=== PATIENT | female | born 1995 | race Caucasian/White ===

== ENCOUNTER 2024-02-01 01:19 | Emergency (ER) | payer OTHER, SELFPAY ==
--- NOTE | ~2024-02-01 | XR_ITS ---
EXAMINATION: XR CHEST CLINICAL INFORMATION: Cough. COMPARISON: 01/14/2017. TECHNIQUE: Frontal view of the chest was obtained. FINDINGS: No significant abnormality is noted involving the heart, lungs, mediastinum, bony thorax or soft tissues. XR/XR chest 1V IMPRESSION: Unremarkable examination.
[2024-02-01 01:30] VITALS: BP 126/80; BP 126/85; PULSE 110; PULSE 91; RESP 16; TEMP 36.9; O2SAT 99; BMI 25.3
--- NOTE | 2024-02-01 01:43 | ED_ITS ---
HPI - Syncope General Chief Complaint: Syncope Stated Complaint: CONFUSED Time Seen by Provider: 02/01/24 01:43 Source: patient Mode of arrival: EMS Limitations: no limitations History of Present Illness ED Provider: yandel CA narrative: Patient came here for syncope episode after having few drinks and smoke nicotine bus coughing which is going on for last few days and passed out no significant injuries Related Data Allergies Allergy/AdvReac Type Severity Reaction Status Date / Time No Known Allergies Allergy Unverified 02/01/24 01:34 Review of Systems 2 Review of Systems: Yes all other systems are reviewed and are negative [facility] Social History Social History Smoked in Last 30 Days: No Use of substances other than those prescribed or required for medical reasons: No Advance Directives: No Advance Directives Information Provided: Yes Patient : No Physical Exam 2 Vital Signs: Vital Signs: Last Vital Signs Temp 97.9 F 02/01/24 04:09 Pulse 96 02/01/24 04:09 Resp 16 02/01/24 04:09 BP 116/74 02/01/24 04:09 Pulse Ox 97 02/01/24 04:09 O2 Del Method Room Air 02/01/24 04:09 BMI result Body Mass Index 25.3 Appearance: Alert. Oriented X3. No acute distress. Eyes: PERRLA, No Nystagmus ENT: Pharynx normal. Oral Mucosa moist Neck: Normal inspection. Neck supple. CVS: Normal heart rate and rhythm. Pulses normal. Respiratory: No respiratory distress. Equal air entry bilateral, no wheezing/rales/rhonchi Abdomen: Soft and nontender. Bowel sounds are present, no mass palpable, no CVA tenderness Skin: Skin warm and dry. Normal skin color. Normal skin turgor. Extremities: No lower extremity edema. No calf tenderness Neuro: Oriented X 3. No motor deficit. No sensory deficit.No cerebellar signs , cranial nerves II-XII intact Medications Administered Discontinued Medications Generic Name Dose Route Start Last Admin Trade Name Freq PRN Reason Stop Dose Admin Acetaminophen 650 mg 02/01/24 04:15 02/01/24 04:40 Acetaminophen 325 Mg Tablet PO 02/01/24 04:16 650 mg ONCE ONE Administration Sodium Chloride 1,000 mls @ 999 mls/hr 02/01/24 02:04 02/01/24 03:30 Ns IV 02/01/24 03:04 Infused .Q1H1M ONE Infusion Medical Decision Making Medical Decision Making [facility] Narrative: Patient with acute alcohol intoxication feeling much better now after resting and IV fluid discharge patient home orthostatics normal Differential Diagnosis Differential Diagnoses: The differential diagnosis associated with the presentation includes Lab Data [facility] Lab Attestation statement: I reviewed the patient's lab results. 02/01/24 02:25 02/01/24 02:30 Labs: Lab Results 02/01/24 02/01/24 02/01/24 Range/Units 02:25 02:29 02:30 WBC 9.6 (4.8-10.8) X10*3/uL RBC 4.33 (4.20-5.50) X10*6/uL Hgb 13.4 (12.0-16.0) g/dl Hct 38.1 (37.0-47.0) % MCV 88.0 (80.0-98.0) fL MCH 30.9 (27.0-33.0) pg MCHC 35.2 H (31.0-35.0) g/dl RDW 12.7 (11.0-16.0) % Plt Count 202 (160-400) X10*3/uL MPV 12.2 (9.4-12.3) fL Immature Gran % (Auto) 0.3 (0.0-0.4) % Neut % (Auto) 72.2 (45-73) % Lymph % (Auto) 18.0 L (20-40) % [place] % (Auto) 7.8 (2-11) % Eos % (Auto) 1.0 (0-4) % Baso % (Auto) 0.7 (0-2) % Lymph # (Auto) 1.7 (1.2-4.9) X10*3/uL [place] # (Auto) 0.8 (0.1-1.2) X10*3/uL Eos # (Auto) 0.1 (0.0-0.4) X10*3/uL Baso # (Auto) 0.1 (0.0-0.2) X10*3/uL Abs Immat Gran (auto) 0.03 (0.00-0.03) X10*3/uL Absolute Neuts (auto) 7.0 (2.0-8.3) x10*3/uL Absolute Nucleated RBC 0.000 (0.0-0.012) X10*3/uL Nucleated RBC % (auto) 0.0 (0.0-0.2) /100WBC Sodium 144 (135-145) mmol/L Potassium 3.9 (3.3-5.1) mmol/L Chloride 111 H (96-108) mmol/L Carbon Dioxide 24 (22-29) mmol/L Anion Gap 13 (12-20) BUN 9 (9-16) mg/dL Creatinine 0.70 (0.5-1.4) mg/dL Estim Creat Clear Calc 106.0 Estimated GFR > 60 Random Glucose 91 (60-115) mg/dL Calcium 9.1 (8.4-10.2) mg/dL Magnesium 2.0 (1.6-2.6) mg/dL Total Bilirubin 0.2 (0.0-1.0) mg/dL AST 18 (5-31) U/L ALT 13 (0-31) U/L Alkaline Phosphatase 84 (39-117) U/L Total Protein 7.3 (6.5-8.0) g/dL Albumin 4.3 (3.5-5.0) g/dL Ethyl Alcohol 147 mg/dL Discharge Plan Discharge Clinical Impression: Alcohol intoxication Patient Disposition: Home, Self-Care Instructions: Alcohol Intoxication (ED) Additional Instructions: Drink plenty of fluids Stop drinking alcohol Print Language: Bolivian
[2024-02-01 01:48] VITALS: PULSE 91; O2SAT 99
[2024-02-01 02:03] VITALS: BP 115/72; PULSE 92
[2024-02-01 02:04] VITALS: BP 109/78; BP 111/74; PULSE 103; PULSE 98
--- NOTE | 2024-02-01 02:05 | PC.NURSE ---
pt initially refusing lab work, md aware and orthos requested. While completing ortho's pt noted to be unable to independently international coordinator place as she was observed to sway, and was not reaching for items to stabilize her. RN provided hands on assistance to the patient while standing. MD made aware of pt's refusal and request to go home, she denies having a sober/safe ride this date adding that she will just uber home. RN discussed concerns with MD as patient unable to independently stand without assistance
[2024-02-01] MEDS: 0.9 % Sodium Chloride 1,000 ML 999 ML IV (02:26)
[2024-02-01 02:29] LABS: MANUAL DIFF FLAG NO
[2024-02-01 02:37] LABS: Basophils Absolute Auto 0.1 X10*3/uL (0.0-0.2); Basophils Percent Auto 0.7 % (0-2); Eosinophils Absolute Auto 0.1 X10*3/uL (0.0-0.4); Hematocrit 38.1 % (37.0-47.0); Hemoglobin 13.4 g/dl (12.0-16.0); Imm Gran Abs Auto 0.03 X10*3/uL (0.00-0.03); Imm Gran Pct Auto 0.3 % (0.0-0.4); Lymphocytes Absolute Auto 1.7 X10*3/uL (1.2-4.9); Mean Corpuscular HGB Conc 35.2 g/dl (31.0-35.0); Mean Corpuscular Hemoglobin 30.9 pg (27.0-33.0); Mean Platelet Volume 12.2 fL (9.4-12.3); Monocytes Absolute Auto 0.8 X10*3/uL (0.1-1.2); Monocytes Percent Auto 7.8 % (2-11); Neutrophils Percent Auto 72.2 % (45-73); Platelet Count 202 X10*3/uL (160-400); Red Blood Count 4.33 X10*6/uL (4.20-5.50); Red Cell Distribution Width 12.7 % (11.0-16.0); White Blood Count 9.6 X10*3/uL (4.8-10.8)
[2024-02-01 02:51] LABS: Ethanol 147 mg/dL
[2024-02-01 02:52] LABS: Alanine Aminotransferase 13 U/L (0-31); Albumin Level 4.3 g/dL (3.5-5.0); Alkaline Phosphatase 84 U/L (39-117); Anion Gap 13 (12-20); Aspartate Amino Transferase 18 U/L (5-31); Bilirubin Total 0.2 mg/dL (0.0-1.0); Blood Urea Nitrogen 9 mg/dL (9-16); Calcium 9.1 mg/dL (8.4-10.2); Carbon Dioxide 24 mmol/L (22-29); Chloride 111 mmol/L (96-108); Estimated Glomerular Filt Rate > 60; Glucose Random 91 mg/dL (60-115); Potassium 3.9 mmol/L (3.3-5.1); Sodium 144 mmol/L (135-145); Total Protein 7.3 g/dL (6.5-8.0)
[2024-02-01 04:09] VITALS: BP 116/74; PULSE 96; RESP 16; TEMP 36.6; O2SAT 97
--- NOTE | 2024-02-01 04:12 | MHC.EDTECH ---
Patient ambulated to the bathroom with 1 assist,patient had a steady gait,vitals taken
[2024-02-01] MEDS: Acetaminophen 325 MG TABLET 650 MG PO (04:40)
[2024-02-01 06:12] VITALS: BP 118/76; PULSE 88; RESP 16; TEMP 36.8; O2SAT 99
== END 2024-02-01 06:13 | disposition home or self-care (01) ==
PROVIDERS: Emergency Provider Internal Medicine
DX: F10.129 Alcohol abuse with intoxication, unspecified (principal); Y90.6 Blood alcohol level of 120-199 mg/100 ml; R05.9 Cough, unspecified
CPT/HCPCS: 36415; 71045; 80053; 80307; 83735; 85025; 96360; 99284; 99285

== ENCOUNTER 2024-02-22 12:51 | Emergency (ER) | payer OTHER, SELFPAY ==
--- NOTE | ~2024-02-22 | XR_ITS ---
EXAMINATION: XR HAND, LEFT CLINICAL INFORMATION: Pain, trauma COMPARISON: Finger radiographs 08/15/2008 TECHNIQUE: 3 views of the hand FINDINGS: No fracture or dislocation. Joint spaces are maintained. No cortical erosion. Soft tissues are unremarkable. XR/XR hand LT min 3V IMPRESSION: No acute osseous abnormality.
[2024-02-22 13:07] VITALS: BP 115/57; PULSE 79; RESP 18; TEMP 36.9; O2SAT 100; BMI 22.5
--- NOTE | 2024-02-22 14:22 | ED_ITS ---
HPI - Extremity Problem General Chief complaint: Extremity Injury, Upper Stated complaint: hand inj Time Seen by Provider: 02/22/24 14:22 Source: patient Mode of arrival: ambulatory Limitations: no limitations History of Present Illness ED Provider: Jess Harris PA-C HPI Narrative: Patient is a 28 year old assigned female at with no reported medical history presenting to the emergency department today with left thumb pain. Patient states that yesterday while paddle boarding, she reached back and pushed off her palms when she felt a pop in her left thumb and ever since has had pain with left thumb movement - specifically when attempting to skating rink ice maker things. Patient denies any head strike, loss of consciousness, dizziness, lightheadedness, abdominal pain, nausea, vomiting, fever, chills, blurry vision, double vision, loss of vision, chest pain, difficulty breathing, shortness of breath, back pain, night sweats, pain with urination, increased urinary frequency, increased urinary urgency, blood in her urine or stool, syncope or a near syncopal episode, bowel incontinence, bladder incontinence, or any other complaints at this time. MD Complaint: extremity pain Onset (ago): day(s) (1) Pain Consistency: constant Location: left and upper extremity Severity scale (1-10): 4 Quality: aching and dull Radiation: none Relieving factors: immobilization Exacerbating factors: other (ROM) Associated symptoms: denies other symptoms Related Data Allergies Allergy/AdvReac Type Severity Reaction Status Date / Time No Known Allergies Allergy Verified 02/22/24 13:10 Review of Systems Constitutional: Constitutional: Reports no additional constitutional complaints, Denies chills, Denies fever(s) and Denies night sweats Eyes: Eyes: Reports no additional eye complaints, Denies blurry vision, Denies change in vision, Denies diplopia, Denies eye discharge, Denies loss of vision and Denies eye pain ENT: Denies dizziness Cardiovascular: Cardiovascular: Reports no additional cardiovascular complaints, Denies chest pain, Denies lightheadedness, Denies Loss of Consciousness and Denies dyspnea Respiratory: Respiratory: Reports no additional respiratory complaints and Denies dyspnea Gastrointestinal: Gastrointestinal: Reports no additional gastrointestinal complaints, Denies abdominal pain, Denies melena, Denies hematochezia, Denies change in bowel habits and Denies change in stool character Genitourinary: Genitourinary: Denies hematuria, Denies urinary frequency, Denies dysuria, Denies urinary incontinence, Denies urinary hesitancy and Denies urinary urgency Musculoskeletal: Musculoskeletal: Reports no additional musculoskeletal complaints, Denies numbness and Denies tingling Comments: left thumb pain Neurologic: Denies dizziness, Denies loss of vision, Denies numbness and Denies tingling Psychiatric: Psychiatric: Reports no additional psychiatric complaints Endocrine: Endocrine: Reports no additional endocrine complaints Hematologic/Lymphatic: Hematologic/Lymphatic: Reports no additional hematologic/lymphatic complaints Allergic/Immunologic: Allergic/Immunologic: Reports no additional allergic/immunologic complaints [facility] Past Medical History Attestation statement: The following information was validated with the patient. Source: old records reviewed and nursing notes reviewed Social History Social History Advance Directives: Yes Advance Directives Information Provided: Yes Advance Directives on File: No (b) Do you have a plan to hurt others: No Plan Physical Exam Vital Signs: Vital Signs: Last Vital Signs Temp 97.8 F 02/22/24 14:44 Pulse 73 02/22/24 14:44 Resp 16 02/22/24 14:44 BP 126/88 02/22/24 14:44 Pulse Ox 98 02/22/24 14:44 O2 Del Method Room Air 02/22/24 14:44 BMI result Body Mass Index 22.5 Const: General: cooperative, no acute distress, alert and awake Nutritional Appearance: well nourished Orientation/consciousness: patient oriented x3 Limitations: no limitations HEENT: Head: Yes normal to inspection and Yes atraumatic Ears: hearing grossly normal bilaterally and external ears normal General nose exam: Normal external nose present, no nasal discharge noted and no epistaxis Face and sinus: Yes normal facial exam, No abrasion and No laceration Mouth: Normal oral and palatal mucosa present, no drooling and no muffled voice Eyes: General: appearance normal, both eyes and all related structures Periorbital: periorbital findings normal Eyelids: Yes eyelids normal Conjunctivae: conjunctivae normal Pupils: Equal, round and reactive pupils present EOM: EOMs intact bilaterally Neck: Neck: Yes normal visual inspection, Yes full ROM and Yes no lymphadenopathy Chest: Chest palpation & inspection: normal inspection of the chest Resp: Effort & Inspection: normal respiratory effort and able to speak in complete sentences GI: Inspection: Yes normal to inspection Neuro: General: patient oriented x3 and moves all extremities Cranial nerves: Yes Equal, round and reactive pupils present Cognition (Neuro): normal cognition Extrem: Other: patient's left thumb has decreased ROM secondary to pain. Patient unable to fully extend left thumb over her left palm. General: Yes normal to inspection and Yes capillary refill normal Psych: Appearance: grossly normal Mental Status: mental status grossly normal Affect: normal affect Attitude: cooperative Thought process: Normal thought process present Thought content: Normal thought content present Insight: Good insight present (Psych) Medical Decision Making Medical Decision Making MDM Narrative: Patient is a 28 year old assigned female at with no reported medical history presenting to the emergency department today with a left thumb injury. Patient's physical exam was as noted in the physical exam portion of this note and concerning for a left thumb injury. Patient's left hand x-ray showed no acute process. I explained my physical exam findings as well as all test results to the patient. I answered all questions asked by the patient. Patient's left hand was placed in a thumb spica splint, without incident. Patient's PMS was intact prior to and after splint placement. I stressed the importance of the patient taking her medication as directed (either prescribed or as the over the counter packaging recommends). I stressed the importance of the patient following up with her primary care provider and an orthopedic provider. I stressed the importance of the patient returning to the emergency department immediately if her symptoms were to worsen or if she were to develop any dizziness, shortness of breath, difficulty breathing, chest pain, blurry vision, loss of vision, nausea, vomiting, abdominal pain, fever, chills, back pain, or any other complaints. Patient verbalized agreement and understanding with this treatment plan and discharge. Differential Diagnosis Differential Diagnoses: The differential diagnosis associated with the presentation includes UCL sprain UCL injury RCL injury RCL sprain Thumb sprain Admission/Observation Consideration of admission/observation: Escalation of care including admission/observation considered Patient would have been admitted to the hospital had her work up had any findings where hospital admission was appropriate and her clinical presentation warranted hospital admission. Independent Interpretation I performed an independent interpretation of an: Plain X-Ray Interpretation: My interpretation is in agreement with the radiologist's impression of this imaging study. EXAMINATION: XR HAND, LEFT CLINICAL INFORMATION: Pain, trauma COMPARISON: Finger radiographs 08/15/2008 TECHNIQUE: 3 views of the hand FINDINGS: No fracture or dislocation. Joint spaces are maintained. No cortical erosion. Soft tissues are unremarkable. XR/XR hand LT min 3V IMPRESSION: No acute osseous abnormality. Dictated By: Irina Craven MD Signed By: Electronically signed by Irina Craven MD 02/22/24 1120 Radiology Impression Discussion of test interpretation with radiology: I have reviewed the radiologist's reading. Procedures Orthopedic Splinting/Casting left thumb: Side: left Upper Extremity Injury Location: hand Upper Extremity Immobilizer: thumb spica Discharge Plan Discharge Clinical Impression: Left thumb sprain Patient Disposition: Home, Self-Care Instructions: Sprain (ED), Skier's Thumb (ED) Additional Instructions: Based on your physical exam and mechanism of injury - I'm concerned you injured your left ulnar collateral or radial collateral ligaments. Follow up with your primary care provider and the orthopedic provider. You may remove the splint to shower but it should otherwise remain on. Return to the emergency department immediately if your symptoms worsen or if you develop any dizziness, shortness of breath, difficulty breathing, chest pain, blurry vision, loss of vision, nausea, vomiting, abdominal pain, fever, chills, back pain, or any other complaints. Referrals: [facility] [place] Family Medicine [Provider Group] (Call to establish and follow up with a primary care provider. If you already have a primary care provider, please follow up with them.) [facility] Magalie Farr [Provider Group] [facility] [Provider Group] [facility] [place] [facility] [Provider Group] (Call to establish and follow up with an orthopedic provider. ) Stand Alone Forms: Work/School Release Interventions: ED Discharge Assessment Last Done: 02/22/24 14:44 Discharge Date/Time: 02/22/24 14:45 Print Language: Jordanian
[2024-02-22 14:44] VITALS: BP 126/88; PULSE 73; RESP 16; TEMP 36.6; O2SAT 98
== END 2024-02-22 14:45 | disposition home or self-care (01) ==
PROVIDERS: Emergency Provider Emergency Medicine
DX: S63.602A Unspecified sprain of left thumb, initial encounter (principal); X58.XXXA Exposure to other specified factors, initial encounter; Y93.19 Activity, other involving water and watercraft; Y92.89 Other specified places as the place of occurrence of the external cause; Y99.9 Unspecified external cause status; M79.642 Pain in left hand
CPT/HCPCS: 29130; 73130; 99283; 99284

== ENCOUNTER 2024-03-01 10:26 | Outpatient (AMB) | payer OTHER, SELFPAY ==
--- NOTE | 2024-03-01 10:31 | A.OFFVIS_ITS ---
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 Patient reports while padding boarding on 02/21/24 she reached back and pushed off the palms of her hands when she felt and heard a loud pop in her left thumb. She has been having pain since this injury specifically with gripping objects, states even grabbing her phone is painful. Her pain is starting to radiate up her arm and stops just before her elbow. She tried Advil but found no relief so she discontinued. She was seen in [facility] on 02/22/24 for this where she was placed in a splint, X-Rays were done and she was placed into a splint until her follow up with orthopedics. Complaints of the brace making her thumb feel worse. hx of left hand surgery roughly 5 years ago in [facility]. 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 Patient reports that she was on a paddle board when she reached behind her, and upon placing weight upon her left thumb she heard a loud pop and began to experience pain. Patient was previously evaluated in the emergency department, where she was placed in a thumb spica splint. Today, the patient reports that she feels her brace is causing the pain in her thumb to worsen. She reports no pain at total rest, but it is painful when she attempts to use the thumb, particularly with abduction. She denies any swelling, erythema, ecchymosis. 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 Neuro: Median, ulnar, radial nerves motor and sensory intact and sensation is normal to the tips of all digits. Vascular: Cap refill brisk Pain: Patient reports pain at the level of the MCP joint in the left thumb when she attempts to move the hand ROM: Full active range of motion of the thumb and other digits of the left hand Significant ligamentous laxity of the ulnar collateral ligament of the left thumb No Stener lesion observed Skin: No lacerations or abrasions. General: No ecchymosis, erythema, or evidence of infection. Psych: Appears grossly normal Affect normal Attitude cooperative Psych Appearance: grossly normal Mental Status: mental status grossly normal Assessment & Plan Assessment & Plan (1) Rupture of UCL of left thumb: Code(s): S63.642A - Sprain of metacarpophalangeal joint of left thumb, initial encounter Category: Medical Qualifiers: Encounter type: initial encounter Qualified Code(s): S63.642A - Sprain of metacarpophalangeal joint of left thumb, initial encounter Plan 1. UCL sprain of the left thumb MCP joint Date of injury 02/21/2024 After consultation and discussion with Dr. Ibarra, a joint treatment plan was formed x-rays obtained in the emergency department showed no acute fracture or bony abnormalities exam consistent withUCL injury of the left thumb Patient will remain in a thumb spica splint at this time patient will be evaluated by Dr. Ibarra at some point this week for discussion of further treatment options Coding Level of Care Code New Pt Level 3 (69010) Diagnoses Rupture of ulnar collateral ligament of left thumb, initial encounter S63.642A Encounter type: initial encounter
[2024-03-01 10:33] VITALS: BMI 21.3
== END 2024-03-01 11:07 | disposition home or self-care (01) ==
DX: S63.642A Sprain of metacarpophalangeal joint of left thumb, initial encounter (principal)
CPT/HCPCS: 99203

== ENCOUNTER → 2024-03-01 10:26 | Outpatient (BNVA) | payer OTHER, SELFPAY | DX: S63.642A Sprain of metacarpophalangeal joint of left thumb, initial encounter (principal) | CPT/HCPCS: 99202 ==

== ENCOUNTER → 2024-03-02 10:21 | Outpatient (BNVA) | payer OTHER, SELFPAY | PROVIDERS: Visit Provider Orthopaedic Surgery ==

== ENCOUNTER → 2024-03-18 15:03 | Outpatient (BNVA) | payer OTHER, SELFPAY | PROVIDERS: Visit Provider Physician Assistant ==

== ENCOUNTER 2024-04-06 12:52 | Outpatient (AMB) | payer OTHER, SELFPAY ==
--- NOTE | 2024-04-06 13:16 | MHC.OFFVIS ---
Vital Signs 04/06/24 13:49 Height 5 ft 6 in Weight 132 lb BMI 21.3 Intake Visit Reasons: OV-Left thumb sprain-follow up Intake Note: Madiha is a 28 year old right hand dominant female who presents today for a follow up evaluation of left thumb sprain. Patient reports pain level of 7 on the 0-10 pain scale. She states pain is on and off. She is taking Ibuprofen every 6 hours for pain with minimal relief. Denies numbness or tingling. Denies locking on fingers. Allergies No Known Allergies Allergy (Verified 04/06/24 13:49) HPI HPI OV-Left thumb sprain-follow up: Details: Madiha is a 28 year old right hand dominant woman who returns for a left thumb UCL sprain, DOI: 02/21/24 while paddle boarding. She was seen in the ED and placed in a thumb spica cast She says she is doing well. She has been wearing her cast since her DOI, and says she feels very stiff. She denies any numbness, tingling, or locking. She reports taking Ibuprofen for pain relief, which is somewhat helpful. 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 She says she has been working light duty, and has a co-worker on the floor who can perform restraints if needed. 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 [employer] Review of Systems Const All systems reviewed & are unremarkable except as noted in HPI and below Physical Exam Vital Signs: BMI result Body Mass Index 21.3 Const General: no acute distress and alert Orientation/consciousness: patient oriented x3 Neuro General: patient oriented x3 Extrem Other: Evaluation of Left Upper Extremity: The patient is alert, oriented, and in no acute distress Neuro: Median, Ulnar, Radial nerves motor and sensory intact and sensation is normal to the tips of all digits Vascular: Cap refill brisk ROM: She can make a fist and extend all her digits With encouragement she was able to oppose her thumb to the index middle and ring fingers. No laxity of the UCL at the thumb MCP joint when test in both extension and 45 degrees of flexion. Firm end-points Radiographs: 3 views of the left hand form 02/22/24 were reviewed by me today in clinic. They show no fractures or dislocations. Psych Appearance: grossly normal Affect: normal affect Attitude: cooperative Assessment & Plan Assessment & Plan (1) Sprain of ulnar collateral ligament of metacarpophalangeal (MCP) joint of left thumb: Code(s): S63.642A - Sprain of metacarpophalangeal joint of left thumb, initial encounter Category: Medical Plan Assessment & Plan: 1. Left thumb UCL sprain, DOI: 02/21/24 Treated with short-arm thumb spica cast I educated her about this condition I ordered OT hand therapy to have them make a custom thermoplastic hand based thumb spica splint, to be worn when out of the house with daily activities for the next 3 weeks. This splint is mostly for her work-related activities. She will remove her splint when at home, where she does not have to wear it. She will work on ROM exercises I discussed activity modification, she is able to use her hand for lightweight activities, and slowly increase her weight limit as tolerated over the next month She was given a note for work to return on light duty, with a 2 lb weight limit and no restraining patients for the next 4 weeks She can follow up prn. Scribed for Yasmin Ibarra MD by Jaylon Cain, medical insurance coding specialist, on 04/06/24 at 1:55 PM, EST. Orders: Orders OT Evaluation and Treatment Today S63.642A - Sprain of metacarpophalangeal joint of left thumb, initial encounter Coding Level of Care Code Est Pt Level 3 (48404) Diagnoses Sprain of ulnar collateral ligament of metacarpophalangeal (MCP) joint of left thumb S63.642A
[2024-04-06 13:49] VITALS: BMI 21.3
== END 2024-04-06 14:39 | disposition home or self-care (01) ==
PROVIDERS: Visit Provider Orthopaedic Surgery
DX: S63.642A Sprain of metacarpophalangeal joint of left thumb, initial encounter (principal)
CPT/HCPCS: 99213

== ENCOUNTER → 2024-04-06 12:52 | Outpatient (BNVA) | payer OTHER, SELFPAY | PROVIDERS: Visit Provider Orthopaedic Surgery | DX: S63.642D Sprain of metacarpophalangeal joint of left thumb, subsequent encounter (principal) | CPT/HCPCS: 99212 ==

== ENCOUNTER 2024-04-09 08:26 | Outpatient (RCR) | payer OTHER, SELFPAY ==
--- NOTE | 2024-04-09 12:59 | MHC.OT.OEV ---
[address] [phone] F: [phone] Occupational Therapy Evaluation Patient Name: Madiha Baca Diagnosis: (L)UCL sprain Date of Onset: 02/21/24 Date of Surgery: Attending Provider: Yasmin Ibarra Prescribed Treatment: MD Follow Up Appointment: History of Current Condition: Patient is a 28 y/o right hand dominate female with no significant medical history who was referred to skilled OT with a diagnosis of a (L)UCL sprain. Patient reports she was at a [employer] of [employer] libertarian where she paddle boarding. She was sitting on her board when she went to push herself up and over to allow someone on when she felt her pop. She immediately felt a ton of pain and the next day she felt warm and tingling and went to [facility]. A thumb spica splint was placed and she was in that for a week. She then went to [facility] and a thumb spica cast was placed on her and she wore it for 4 1/2 weeks. 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 she lives with brother in a 1 level home. She stated she has difficulty with gipping and pulling motions. 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 [employer] for Residential program for Childrens with mental disabilities Plays pool Living Situation, Family and/or Social Support: Lives with brother Current Level of Function and Occupation Self Care, Employment, Leisure: min (A) ADLs/ IADLs On light duty Sleep: Driving: Vision: Balance: Pain Assessment Pain Score: 8 Pain Scale Used: Pain Location and Description: (L)thumb 3/10 at rest 8/10 pain during activity Aggravating Factors: Alleviating Factors: ibuprofen, was using ice Skin and Soft Tissue Assessment Skin and Soft Tissue: Comments: Nerve assessment Ulnar Nerve: Median Nerve: Radial Nerve: Comments: Sensory Assessment Temperature: Light Touch: Proprioception: Vibration: Comments: Edema Assessment Upper Extremity: Lower Extremity: Comments: None present Dexterity Assessment Dexterity: Comments: Impaired Special Tests Comments: AROM(PROM) Strength Cervical Cervical Flexion: Cervical Extension: Cervical Lateral Flexion: Cervical Rotation: Comments: WFL Shoulder Flexion: Extension: Abduction: Internal Rotation: External Rotation: Comments: WFL Flexion: Extension: Abduction: Internal Rotation: External Rotation: Comments: WFL Elbow Flexion: Extension: Pronation: Supination: Comments: WFL Flexion: Extension: Pronation: Supination: Comments: WFL Wrist Flexion: 65 Extension: 65 Ulnar Deviation: 25 Radial Deviation: 20 Comments: Flexion: Extension: Ulnar Deviation: Radial Deviation: Comments: Thumb Thumb CMC Flexion: Thumb MCP Flexion: 50 Thumb IP Flexion: 60 Radial Abduction: 55 [place] Abduction: 40 [place] ([place] 0-10): WFL Comments: Digits Index MCP: PIP: DIP: Long MCP: PIP: DIP: Ring MCP: PIP: DIP: Small MCP: PIP: DIP: Comments: WFL Gross Grasp: (R)63lbs. Lateral Pinch: Two-Point Pinch: Three-Jaw Evens: Comments: WFL Patient Education Primary Language: Environmental Advisor Required: Current Knowledge: Teaching Method: Education Needs Identified on Evaluation: How did patient/family demonstrate learning? Barriers to Learning: Readiness for Learning: Who was educated? Comments: Plan of Care Assessment: Patient is a 28 y/o female with (L)UCL sprain (02/21/2024) who presents with pain and decreased ROM. Based on initial evaluation patients current thumb AROM measurements are as follows: 60* IP flexion, 50* MCP flexion, 55* Radial abduction, 40* sánchez abduction. Patient reports 3/10 pain at rest and 8/10 pain during movement. Patient will benefit from skilled OT intervention in order to increase ROM, decrease pain and to achieve her PLOF of (I). Thank you for your referral. STG Duration: 2 weeks Short Term Goals: Patient will report decreased pain from to 6/10 pain in (L)thumb Patient will increase radial abduction to 60* LTG Duration: 4 weeks Cargo Inspector Goals: Patient will report 0/10 pain in (L)thumb Patient will thumb AORM WFLs for improved performance during self care tasks Frequency and Duration: The patient will be seen 2x a week for 4 weeks Treatment Plan: Therapeutic Exercise Therapeutic Activity Home Exercise Program Splinting Patient Education ADL Training Paraffin Fluidotherapy MHP Cold Packs Joint Mobilization Soft Tissue Mobilization Kinesiotaping Skilled OT eval and treat Electronically Signed By: JIE Gutiérrez/NIMCO Anaya Reviewed/agree with student documentation: Therapist: Please sign and return to therapist, Thank you for your referral.
--- NOTE | 2024-04-26 08:22 | MHC.OT.DC ---
[address] [phone] F: [phone] Occupational Therapy Discharge Note Patient Name: Madiha Baca Provider: Yasmin Ibarra Diagnosis: (L)UCL sprain Date of Surgery: Date of Evaluation: 04/09/24 Date of Discharge: Treatments to Date: 1 Cancellations to Date: No Shows to Date: Discharge Status: Visit Non-compliance Discharge Summary: Patient is d/c'd from skilled therapy as she never returned to therapy. Electronically Signed By: JIE Gutiérrez/Jaclyn, CLT Reviewed/agree with student documentation: Therapist: Please Sign and return to therapist, thank you for your referral.
== END 2024-04-26 08:23 | disposition home or self-care (01) ==
LOC: HO.OT 08:26
PROVIDERS: Visit Provider Orthopaedic Surgery
DX: S63.642D Sprain of metacarpophalangeal joint of left thumb, subsequent encounter (principal)
CPT/HCPCS: 97165; 97760